=== PATIENT | female | born 1995 | race Caucasian/White ===

== ENCOUNTER 2018-10-18 10:10 | Emergency (ER) | payer MEDICAID, OTHER ==
[~2018-10-18] VITALS: Ht 162.6 cm; Wt 60.0 kg
[2018-10-18 10:17] VITALS: BP 136/79
[2018-10-18] MEDS ORDERED: MUPI22OI30 TOP (10:41)
== END 2018-10-18 10:57 | disposition home or self-care (01) ==
LOC: ER 10:11
DX: S20.462A Insect bite (nonvenomous) of left back wall of thorax, initial encounter (principal); L03.312 Cellulitis of back [any part except buttock and flank]; Z79.2 Long term (current) use of antibiotics; W57.XXXA Bitten or stung by nonvenomous insect and other nonvenomous arthropods, initial encounter; Y93.89 Activity, other specified; Y92.89 Other specified places as the place of occurrence of the external cause; Y99.8 Other external cause status
CPT/HCPCS: 99283

== ENCOUNTER 2019-03-08 14:32 | Emergency (ER) | payer MEDICAID, OTHER ==
[~2019-03-08] VITALS: Ht 162.6 cm; Wt 58.0 kg
[2019-03-08] MEDS ORDERED: SILV50CR31 TP (15:26)
[2019-03-08 15:39] VITALS: BP 122/75
== END 2019-03-08 15:44 | disposition home or self-care (01) ==
LOC: ER 14:32
DX: O9A.211 Injury, poisoning and certain other consequences of external causes complicating pregnancy, first trimester (principal); T23.171A Burn of first degree of right wrist, initial encounter; T31.0 Burns involving less than 10% of body surface; Z79.899 Other long term (current) drug therapy; Z3A.14 14 weeks gestation of pregnancy; X13.1XXA Other contact with steam and other hot vapors, initial encounter; Y93.89 Activity, other specified; Y92.89 Other specified places as the place of occurrence of the external cause; Y99.8 Other external cause status
CPT/HCPCS: 99283

== ENCOUNTER 2020-03-17 23:30 | Emergency (ER) | payer MEDICAID ==
[~2020-03-17] VITALS: Ht 167.6 cm; Wt 63.2 kg
[2020-03-17 23:59] LABS: CLARITY,URINE CLEAR (Clear); COLOR,URINE YELLOW (Yellow); GLUCOSE, URINE NEGATIVE (Neg); KETONES,URINE 15 mg/dl (Neg); LEUKOCYTE ESTERASE ,URINE NEGATIVE (Neg); NITRITES, URINE NEGATIVE (Neg); OCCULT BLOOD,URINE SMALL (Neg); PROTEIN,URINE NEGATIVE (Neg); URINE HCG NEGATIVE (NEG); UROBILINOGEN,URINE 0.2 E.U/dL (0.2-1.0)
[2020-03-18 00:04] LABS: UA COLLECTION TYPE CLN CATCH MIDSTREAM
[2020-03-18 00:06] LABS: BACTERIA,URINE NONE SEEN /HPF (Neg); MUCUS STRANDS NONE SEEN /LPF (Neg); SQUAMOUS EPITHELIAL CELL,UR FEW /LPF (FEW); WBC,URINE 0-4 /HPF (0-4)
[2020-03-18] MEDS ORDERED: normal saline 1000ml 1,000 ML IV ONE (00:35)
[2020-03-18] MEDS ORDERED: ketorolac tromethamine 15mg/ml inj. IV ONE (00:35)
[2020-03-18] MEDS ORDERED: ondansetron/PF 4mg/2ml inj IV ONE (00:35)
[2020-03-18 01:05] LABS: BASOPHILS % (AUTO) 0.3 % (0-1); EOSINOPHILS % (AUTO) 0.1 % (0-6); HEMATOCRIT 40.7 % (35.0-45.0); HEMOGLOBIN 13.5 g/dl (12.0-16.0); LYMPHOCYTES # (AUTO) 1.9 X10'3 (1.1-4.8); LYMPHOCYTES % (AUTO) 10.6 % (21-51); MEAN CORPUSCULAR HEMOGLOBIN 28.7 PG (27.0-31.0); MEAN CORPUSCULAR HGB CONC 33.3 g/dL (33.0-36.5); MEAN CORPUSCULAR VOLUME 86.2 FL (78-98); MEAN PLATELET VOLUME 10.1 FL (7.4-10.4); MONOCYTES # (AUTO) 0.8 X10'3 (0-0.9); MONOCYTES % (AUTO) 4.3 % (2-12); NEUTROPHILS # (AUTO) 15.4 X10'3 (1.8-7.7); NEUTROPHILS % (AUTO) 84.7 % (42-75); PLATELET COUNT 246 X10'3 (140-440); RED BLOOD COUNT 4.72 X10'6 (4.20-5.60); RED CELL DISTRIBUTION WIDTH 13.9 % (11.5-14.5); WHITE BLOOD COUNT 18.2 X10'3 (4.5-11.0)
[2020-03-18 01:12] LABS: ALBUMIN 4.4 G/DL (3.4-5.0); ANION GAP 12 (8-16); BLOOD UREA NITROGEN 16 MG/DL (7-18); BUN/CREATININE RATIO 16.2 (6.6-38.0); CHLORIDE 103 MMOL/L (99-107); CREATININE 0.99 MG/DL (0.40-0.90); GLUCOSE 109 MG/DL (70-104); POTASSIUM 4.1 MMOL/L (3.5-5.1); SODIUM 139 MMOL/L (135-145); TOTAL CARBON DIOXIDE 23.7 MMOL/L (24-32); eGFR 69 ML/MIN
[2020-03-18] MEDS ORDERED: HYDROcodone/acetaminophen 5mg/325mg tablet PO ONE (01:15)
[2020-03-18] MEDS ORDERED: ONDA4TAB12 PO (01:18)
[2020-03-18] MEDS ORDERED: HYDR-3965 PO (01:18)
[2020-03-18 02:17] VITALS: BP 122/77
== END 2020-03-18 02:20 | disposition home or self-care (01) ==
LOC: ER 23:31
DX: N20.0 Calculus of kidney (principal); M54.89 Other dorsalgia; Z79.899 Other long term (current) drug therapy
CPT/HCPCS: 36415; 74176; 80048; 81001; 81025; 85025; 96361; 96374; 96375; 99284; J1885; J2405; J7030; 81003

== ENCOUNTER 2024-07-19 09:26 | Emergency (ER) | payer MEDICAID ==
[~2024-07-19] VITALS: Ht 162.6 cm; Wt 83.2 kg
[~2024-07-19 09:26] MED LIST: ONDA-243 PO
[2024-07-19 09:30] VITALS: BP 144/97; PULSE 90; TEMP 98.1; O2SAT 100
--- NOTE | 2024-07-19 09:51 | RADIOLOGY REPORT ---
EXAM: DI CHEST,TWO VIEWS HISTORY: chest wall pain COMPARISON: None TECHNIQUE: Frontal and lateral views of the chest were performed. FINDINGS: No pneumothorax, pulmonary edema, pleural effusions, or consolidative infiltrates. The heart is not enlarged. There is minimal thoracic dextroscoliosis. No fractures are identified about the bony thora x. IMPRESSION: No acute intrathoracic process.
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
[2024-07-19 10:20] VITALS: RESP 16
[2024-07-19] MEDS: ketorolac trometh 15mg/ml vial 15 MG/ML ML IM ONE (10:20)
== END 2024-07-19 10:32 | disposition home or self-care (01) ==
LOC: ER 09:27
DX: R07.89 Other chest pain (principal)
CPT/HCPCS: 71046; 96372; 99283; J1885